=== PATIENT | female | born 2000 ===

== ENCOUNTER 2023-01-08 05:37 | Emergency (ER) | payer OTHER ==
[2023-01-08] MEDS ORDERED: KETOROLAC 30 MG/ML INJ ONE (06:15)
[2023-01-08] MEDS ORDERED: NA CHLORIDE 0.9% 2,000 ML ONE (06:15)
[2023-01-08 06:22] LABS: Absolute Lymphocytes (CBC) 2.3 K/uL (0.7-4.9); Hematocrit 35.4 % (36.0-45.0); Lymphocytes % 23.1 % (15.3-44.8); MCV 79.7 fL (80-100); MPV 9.5 fL (7.6-11.3); Platelets 158 thou/uL (152-406); RBC Red Blood Cell Count 4.44 M/uL (3.86-4.86)
[2023-01-08 06:26] LABS: Protime INR 1.04
[2023-01-08 06:49] LABS: Albumin 3.1 g/dL (3.4-5.0); Bilirubin Direct 0.1 mg/dL (0-0.2); Bilirubin Indirect, Calculated 0.2 mg/dL (0.2-0.8); Bilirubin Total 0.3 mg/dL (0.2-1.0); Magnesium 1.9 mg/dL (1.6-2.4); Potassium 3.6 mEq/L (3.5-5.1); Protein, Total 6.4 g/dL (6.4-8.2); Troponin High Sensitivity 3.5 pg/mL (<58.9)
[2023-01-08 07:31] LABS: Blood Morphology Comment NOT SEEN (NOT SEEN); Platelet Estimate ADEQ; White Blood Cell Scan OK (OK)
[2023-01-08] MEDS ORDERED: MAGNES/ALUMIN/SIMET 30ML UCUP ONE (07:45)
[2023-01-08] MEDS ORDERED: FAMOTIDINE 20 MG/2 ML VIAL IV ONE (07:45)
[2023-01-08] MEDS ORDERED: DICYCLOMINE HCL 20 MG/2 ML AMP IM ONE (07:45)
--- NOTE | 2023-01-08 08:08 | RAD REPORT ---
EXAM DESCRIPTION: CT - Chest Abdomen Pelvis W Cont - 01/08/2023 6:57 am CLINICAL HISTORY: ABDOMINAL PAIN COMPARISON: No comparisons TECHNIQUE: Thin axial CT images of the chest, abdomen, and pelvis, performed following intravenous a dministration of 93 mL Isovue-300. Multiplanar reformats were generated and reviewed. All CT scans are performed using dose optimization technique as appropriate and may include automated exposure control or mA/KV adjustment according to patient size. FINDINGS: The lungs are clear.No pleural or pericardial effusion.No intrathoracic adenopathy. The liver, spleen, pancreas, adrenal glands and kidneys are within normal limits. Gallbladder shows l ayering mildly hyperdense content near the neck, suggestive of sludge. No bowel obstruction, free air, free fluid or abscess. Normal appendix. No pathologic lymphadenopath y in the abdomen or pelvis. Bladder is suboptimally distended limiting evaluation. Ovoid thin-walled 1.8 cm cyst right paramidlin e, just above the pelvic floor, may represent a Alexander duct cyst, given location. No worrisome osseous finding. IMPRESSION: No acute abnormalities in the chest, abdomen, or pelvis. Incidental findings as above.
--- NOTE | 2023-01-08 09:13 | EDPHYS ---
Physician Documentation [facility] Name: Darline Howell Age: 22 yrs Sex: Female : 2000 Arrival Date: 01/08/2023 Time: 05:37 Bed 20 Private MD: ED Physician Zoran Aparicio HPI: 01/08 05:52 This 22 yrs old Female presents to ER via EMS with complaints of upper sp4 abdominal pain . 05:52 Patient is 22-year-old female 6 weeks after her fourth history of sp4 6 weeks ago. Currently breast-feeding. . 06:42 Patient states this morning she developed epigastric and lower chest pain associated sp4 with nausea and vomiting. Patient reported episode of diaphoresis and dizziness. Patient called EMS EMS brought patient to the emergency room for evaluation. . 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 - Social history:: Smoking status: Patient denies any tobacco usage or history of. Patient/guardian denies using alcohol, street drugs, IV drugs. - Family history:: not pertinent. ROS: 06:42 Constitutional: Negative for fever, chills, and weight loss, positive for generalized sp4 weakness, near syncope, nausea vomiting, epigastric lower chest pain 06:42 All other systems are negative, Exam: 06:42 Constitutional: This is a well developed, well nourished patient who is awake, alert, sp4 and in no acute distress. Head/Face: Normocephalic, atraumatic. Eyes: Pupils equal round and reactive to light, extra-ocular motions intact. Lids and lashes normal. Conjunctiva and sclera are not injected. Cornea within normal limits. Periorbital areas with no swelling, redness, or edema. ENT: Nares patent. No nasal discharge, no septal abnormalities noted. Tympanic membranes are normal and external auditory canals are clear. Oropharynx with no redness, swelling, or masses, exudates, or evidence of obstruction, uvula midline. Mucous membranes moist. Neck: Trachea midline, no thyromegaly or masses palpated, and no cervical lymphadenopathy. Supple, full range of motion without nuchal rigidity, or vertebral point tenderness. Chest/axilla: Normal chest wall appearance and motion. Nontender with no deformity. No lesions are appreciated. Cardiovascular: Regular rate and rhythm with a normal S1 and S2. No gallops, murmurs, or rubs. Normal PMI, no JVD. No pulse deficits. Respiratory: Lungs have equal breath sounds bilaterally, clear to auscultation and percussion. No rales, rhonchi or wheezes noted. No increased work of breathing, no retractions or nasal flaring. Abdomen/GI: Soft, with normal bowel sounds. No distension or tympany. No guarding or rebound. Positive epigastric tenderness, no rebound Back: No spinal tenderness. No costovertebral tenderness. Skin: Warm, dry with normal turgor. Normal color with no rashes, no lesions, and no evidence of cellulitis. MS/ Extremity: Pulses equal, no cyanosis. Neurovascular intact. Full, normal range of motion. Neuro: Awake and alert, GCS 15, oriented to person, place, time, and situation. Cranial nerves II-XII grossly intact. Motor strength 5/5 in all extremities. Sensory grossly intact. Psych: Awake, alert, with orientation to person, place and time. Behavior, mood, and affect are within normal limits 06:42 ECG was reviewed by the Attending Physician. EKG time 0609. Normal sinus at a rate of [address] elevation or depression, no ectopy, normal EKG Vital Signs: 05:44 BP 93 / 47; Pulse 56; Resp 17; Temp 97.7(O); Pulse Ox 99% ; Weight 90.72 kg; Height 5 jj7 ft. 4 in. ; Pain 6/10; 06:31 BP 100 / 51; Pulse 61; Resp 20; Pulse Ox 99% ; Pain 6/10; jj7 07:07 BP 111 / 62; Pulse 79; Resp 16; Pulse Ox 100% on R/A; kd3 08:23 BP 111 / 67; Pulse 74; Resp 18; Pulse Ox 99% on R/A; kd3 05:44 Body Mass Index 34.33 (90.72 kg, 162.56 cm) jj7 05:44 Pain Scale: Adult jj7 06:31 Pain Scale: Adult jj7 MDM: 05:51 Patient medically screened. sp4 09:18 Differential Diagnosis Gallstones, pancreatitis, cardiomyopathy, pneumonia, rt pneumothorax, bowel obstruction, gastritis. Data reviewed: vital signs, nurses notes, lab test result(s), EKG, radiologic studies. Consideration of Admission/Observation Escalation of care including admission/observation considered. I considered the following discharge prescriptions or medication management in the emergency department Medications were administered in the Emergency Department. See MAR. Independent interpretation of the following test(s) in the Emergency Department CT Scan: My interpretation is No bowel obstruction syndrome interpretation of CT scan images. Test considered but Not performed: Ultrasound Normal LFTs, mild gallbladder sludge without stones seen, do not believe that ultrasound is indicated to rule out cholecystitis. Counseling: I had a detailed discussion with the patient and/or guardian regarding the historical points, exam findings, and any diagnostic results supporting the discharge/admit diagnosis, lab results, radiology results, the need for outpatient follow up. Special discussion: I discussed with the patient/guardian in detail that at this point there is no indication for admission to the hospital. It is understood, however, that if the symptoms persist or worsen the patient needs to return immediately for re-evaluation. 01/08 05:51 Order name: COVID-19 SARS RT PCR sp4 01/08 06:20 Order name: Basic Metabolic Panel; Complete Time: 07:30 EDMS 01/08 06:20 Order name: Liver (Hepatic) Function; Complete Time: 07:30 EDMS 01/08 06:20 Order name: Troponin High Sensitivity; Complete Time: 07:30 EDMS 01/08 06:20 Order name: NT PRO-BNP; Complete Time: 07:30 EDMS 01/08 06:20 Order name: Magnesium; Complete Time: 07:30 EDMS 01/08 06:20 Order name: Lipase; Complete Time: 07:30 EDMS 01/08 06:20 Order name: CBC with Automated Diff; Complete Time: 08:11 EDMS 01/08 06:20 Order name: Protime (+INR); Complete Time: 06:46 EDMS 01/08 06:21 Order name: SARS-COV-2 RT PCR; Complete Time: 07:30 EDMS 01/08 07:32 Order name: CBC Smear Scan; Complete Time: 08:11 EDMS 01/08 06:25 Order name: Chest Abdomen Pelvis W Cont; Complete Time: 08:11 EDMS 01/08 05:50 Order name: EKG; Complete Time: 07:09 sp4 01/08 05:50 Order name: Cardiac monitoring; Complete Time: 06:14 sp4 01/08 05:50 Order name: EKG - Nurse/Tech; Complete Time: 06:14 sp4 01/08 05:50 Order name: IV Saline Lock; Complete Time: 06:00 sp4 01/08 05:50 Order name: Labs collected and sent; Complete Time: 06:14 sp4 01/08 05:50 Order name: O2 Per Protocol; Complete Time: 06:14 sp4 01/08 05:50 Order name: O2 Sat Monitoring; Complete Time: 06:14 sp4 EC:42 Rate is 65 beats/min. Rhythm is regular, Normal Sinus Rhythm. QRS [place] is Normal. NE sp4 interval is normal. QRS interval is normal. QT interval is normal. T waves are Normal. No ST changes noted. Clinical impression: Normal ECG. Interpreted by me. Reviewed by me. Administered Medications: 06:03 Drug: NS 0.9% IV 1000 ml IV at 1 bolus Per protocol; 1000 mL bolus Route: IV; Rate: 1 jj7 bolus; Site: left antecubital; 09:21 Follow up: Response: No adverse reaction; IV Status: Completed infusion; IV Intake: kd3 1000ml 06:07 Drug: Ketorolac IVP 30 mg IVP once Route: IVP; Site: left antecubital; jj7 06:33 Follow up: Response: No change in condition; Pain is unchanged, physician notified jj7 09:21 Follow up: Response: No adverse reaction kd3 07:40 Drug: Alum-Mag Hydroxide-Simeth PO Suspension (200 mg-200 mg-20 mg/5 mL) 30 ml PO once kd3 Route: PO; 09:21 Follow up: Response: No adverse reaction kd3 07:40 Drug: Famotidine IVP 20 mg IVP once; dilute with 10 mL 0.9% NaCl; give over 2 minutes kd3 Route: IVP; Site: left antecubital; 09:21 Follow up: Response: No adverse reaction kd3 07:40 Drug: Dicyclomine IM 20 mg IM once Route: IM; Site: right gluteus; kd3 09:21 Follow up: Response: No adverse reaction kd3 08:46 Drug: NS 0.9% IV 1000 ml IV at 125 ml/hr continuous Route: IV; Rate: 125 ml/hr; Site: kd3 left antecubital; 09:21 Follow up: IV Status: Completed infusion; IV Intake: 100ml kd3 Disposition Summary: 01/08/23 09:11 Discharge Ordered Notes: Location: Home rt Problem: new rt Condition: Stable rt Diagnosis - Epigastric pain rt Followup: rt - With: Private Physician - When: 2 - 3 days - Reason: Discharge Instructions: - Discharge Summary Sheet rt - Abdominal Pain, Adult rt Forms: - Medication Reconciliation Form rt - Thank You Letter rt - Antibiotic Education rt - Prescription Opioid Use rt - Patient Portal Instructions rt - Leadership Thank You Letter rt Signatures: Dispatcher [employer] Amita Gonzalez RN RN kd3 Lakisha Logan RN RN jj7 Zoran Aparicio MD MD rt Jimbo Ham MD MD sp4 Corrections: (The following items were deleted from the chart) 06:25 06:17 CT CHEST,ABD,PELVIS W/WO ordered. EDMS EDMS 07:12 07:09 Chest Abdomen Pelvis W Con+CT.RAD.BRZ ordered. EDMS EDMS 07:25 07:09 BASIC METABOLIC PANEL+C.LAB.BRZ ordered. EDMS EDMS 07:25 07:09 HEPATIC FUNCTION+C.LAB.BRZ ordered. EDMS EDMS 07:25 07:09 MAGNESIUM+C.LAB.BRZ ordered. EDMS EDMS 07:25 07:09 PROBNP+C.LAB.BRZ ordered. EDMS EDMS 07:25 07:09 Troponin High Sensitivity+C.LAB.BRZ ordered. EDMS EDMS 07:25 07:09 LIPASE+C.LAB.BRZ ordered. EDMS EDMS 09:03 07:09 CBC+H.LAB.BRZ ordered. EDMS EDMS 09:03 07:09 PROTIME (+INR)+COAG.LAB.BRZ ordered. EDMS EDMS
--- NOTE | 2023-01-08 09:13 | ER ---
Nurse's Notes [facility] Name: Darline Howell Age: 22 yrs Sex: Female : 2000 Arrival Date: 01/08/2023 Time: 05:37 Bed 20 Private MD: Diagnosis: Epigastric pain Presentation: 01/08 05:44 Chief complaint: Patient states: ABD PAIN STARTED 1 HR AGO EMS states: PT STATES SHE jj7 HAD CP AT FIRST BUT WHEN ASKED TO SHOW WHERE THE PAIN WAS. PT POINTED TO EPIGASTRIC AND ABD AREA. Coronavirus screen: Vaccine status: Patient reports receiving the 2nd dose of the covid vaccine. At this time, the client does not indicate any symptoms associated with coronavirus-19. Ebola Screen: No symptoms or risks identified at this time. Initial Sepsis Screen: Does the patient meet any 2 criteria? No. Patient's initial sepsis screen is negative. Does the patient have a suspected source of infection? No. Patient's initial sepsis screen is negative. Risk Assessment: Do you want to hurt yourself or someone else? Patient reports no desire to harm self or others. Onset of symptoms was January 08, 2023 at 04:30. 05:44 Method Of Arrival: EMS: [facility] 05:44 Acuity: VARINDER 3 jj7 Triage Assessment: 05:49 General: Appears in no apparent distress. comfortable, Behavior is calm, cooperative, jj7 appropriate for age. Pain: Complains of pain in epigastric area. GI: Reports upper abdominal pain. 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 - Social history:: Smoking status: Patient denies any tobacco usage or history of. Patient/guardian denies using alcohol, street drugs, IV drugs. - Family history:: not pertinent. Screenin:[facility] ED Fall Risk Assessment (Adult) History of falling in the last 3 months, jj7 including since admission No falls in past 3 months (0 pts) Confusion or Disorientation No (0 pts) Intoxicated or Sedated No (0 pts) Impaired Gait No (0 pts) Mobility Assist Device Used No (0 pt) Altered Elimination No (0 pt) Score/Fall Risk Level 0 - 2 = Low Risk Oriented to surroundings, Maintained a safe environment. Abuse screen: Denies threats or abuse. Nutritional screening: No deficits noted. Tuberculosis screening: No symptoms or risk factors identified. Assessment: 05:57 Reassessment: SEE TRIAGE ASSESSMENT. jj7 07:00 Reassessment: REPORT GIVEN AMITA PIRES. jj7 07:06 General: Appears in no apparent distress. Pain: Complains of pain in epigastric area. kd3 Neuro: Level of Consciousness is awake, alert, obeys commands, Oriented to person, place, time, situation. Cardiovascular: Patient's skin is warm and dry. Respiratory: Airway is patent Trachea midline Respiratory effort is even, unlabored, Respiratory pattern is regular, symmetrical. 08:23 General: Pt reports no changes in pain after interventions. . kd3 Vital Signs: 05:44 BP 93 / 47; Pulse 56; Resp 17; Temp 97.7(O); Pulse Ox 99% ; Weight 90.72 kg; Height 5 jj7 ft. 4 in. ; Pain 6/10; 06:31 BP 100 / 51; Pulse 61; Resp 20; Pulse Ox 99% ; Pain 6/10; jj7 07:07 BP 111 / 62; Pulse 79; Resp 16; Pulse Ox 100% on R/A; kd3 08:23 BP 111 / 67; Pulse 74; Resp 18; Pulse Ox 99% on R/A; kd3 05:44 Body Mass Index 34.33 (90.72 kg, 162.56 cm) jj7 05:44 Pain Scale: Adult jj7 06:31 Pain Scale: Adult jj7 ED Course: 05:42 Patient arrived in ED. jj7 05:43 Lakisha Logan, RN is Primary Nurse. jj7 05:49 Triage completed. jj7 05:49 Arm band placed on right wrist. Patient placed in an exam room, on a stretcher. jj7 05:50 Potepalov, Jimbo, MD is Attending Physician. sp4 05:57 Patient has correct armband on for positive identification. Placed in gown. Bed in low jj7 position. Call light in reach. Side rails up X2. 05:57 Maintain EMS IV. Dressing intact. Good blood return noted. Site clean \T\ dry. Gauge \T\ jj 7 site: 20G LEFT AC. 06:58 Chest Abdomen Pelvis W Cont In Process Unspecified. EDMS 07:00 Attending Physician role handed off by Jimbo Ham MD rt 07:00 Zoran Aparicio MD is Attending Physician. rt 07:07 Primary Nurse role handed off by Lakisha Logan RN kd3 07:07 Amita Easton RN is Primary Nurse. kd3 07:24 COVID-19 SARS RT PCR Sent. kd3 09:12 No provider procedures requiring assistance completed. kd3 09:20 Provided Education on: . kd3 09:20 IV discontinued, intact, bleeding controlled, No redness/swelling at site. Pressure kd3 dressing applied. Administered Medications: 06:03 Drug: NS 0.9% IV 1000 ml IV at 1 bolus Per protocol; 1000 mL bolus Route: IV; Rate: 1 jj7 bolus; Site: left antecubital; 09:21 Follow up: Response: No adverse reaction; IV Status: Completed infusion; IV Intake: kd3 1000ml 06:07 Drug: Ketorolac IVP 30 mg IVP once Route: IVP; Site: left antecubital; jj7 06:33 Follow up: Response: No change in condition; Pain is unchanged, physician notified jj7 09:21 Follow up: Response: No adverse reaction kd3 07:40 Drug: Alum-Mag Hydroxide-Simeth PO Suspension (200 mg-200 mg-20 mg/5 mL) 30 ml PO once kd3 Route: PO; 09:21 Follow up: Response: No adverse reaction kd3 07:40 Drug: Famotidine IVP 20 mg IVP once; dilute with 10 mL 0.9% NaCl; give over 2 minutes kd3 Route: IVP; Site: left antecubital; 09:21 Follow up: Response: No adverse reaction kd3 07:40 Drug: Dicyclomine IM 20 mg IM once Route: IM; Site: right gluteus; kd3 09:21 Follow up: Response: No adverse reaction kd3 08:46 Drug: NS 0.9% IV 1000 ml IV at 125 ml/hr continuous Route: IV; Rate: 125 ml/hr; Site: kd3 left antecubital; 09:21 Follow up: IV Status: Completed infusion; IV Intake: 100ml kd3 Medication: 05:57 VIS not applicable for this client. jj7 Intake: 09:21 IV: 100ml; Total: 100ml. kd3 09:21 IV: 1000ml; Total: 1100ml. kd3 Outcome: 09:11 Discharge ordered by MD. rt 09:20 Discharged to home ambulatory, kd3 09:20 Condition: stable 09:20 Discharge instructions given to patient, Instructed on discharge instructions, follow up and referral plans. Demonstrated understanding of instructions, follow-up care, 09:22 Patient left the ED. kd3 Signatures: Dispatcher [employer] EDMS Amita Easton RN RN kd3 Lakisha Logan RN RN jj7 Zoran Aparicio MD MD rt Jimbo Ham MD MD sp4
[2023-01-08 09:26] VITALS: TEMP 97.7
[2023-01-08 09:29] VITALS: BP 111/67; O2SAT 99
--- NOTE | 2023-01-08 12:20 | EKG ---
Test Date: 2023-01-08 Test Time: 06:09:47 Tube Cleaning Operator: JANE MEASUREMENT RESULTS: Intervals: Rate: 65 MS: 126 QRSD: 94 QT: 422 QTc: 438 [place]: P: 48 MS: 126 QRS: 49 T: 30 INTERPRETIVE STATEMENTS: Normal sinus rhythm with sinus arrhythmia Normal ECG No previous ECG available for comparison Electronically Signed On 01-08-23 12:19:34 CDT by Jorge Avendano
== END 2023-01-08 09:22 | disposition home or self-care (01) ==
LOC: ER 05:37
DX: R10.13 Epigastric pain (principal); Z20.822 Contact with and (suspected) exposure to COVID-19; Z88.5 Allergy status to narcotic agent
CPT/HCPCS: 96361; 93005; 85025; 80048; 36415; 83735; 85610; 80076; 84484; 83690; 83880; 87635; 71260; 74177; 96375; 96372; 96374; 99284; Q9967; J0500; J7030